=== PATIENT | female | born 1940 | race Caucasian/White ===

== ENCOUNTER 2021-11-02 10:33 | Day surgery (SDC) | payer BC, MEDICARE ==
[~2021-11-02 10:33] MED LIST: Propofol 200 MG/20 ML SDV ONE
[2021-11-02] MEDS ORDERED: Lactated Ringers 1,000 ML IV SCH (11:00)
[2021-11-02] MEDS ORDERED: Sodium Chloride 0.9% 10 ML Syringe FLUSH PRN (11:00)
[2021-11-02] MEDS ORDERED: Propofol 200 MG/20 ML SDV ONE (13:09)
== END 2021-11-02 14:25 | disposition home or self-care (01) ==
LOC: LL.SDS 10:33
PROVIDERS: ATTEND Surgery
DX: Z12.11 Encounter for screening for malignant neoplasm of colon (principal); K57.30 Diverticulosis of large intestine without perforation or abscess without bleeding; K64.4 Residual hemorrhoidal skin tags; N39.0 Urinary tract infection, site not specified; E78.00 Pure hypercholesterolemia, unspecified; E66.9 Obesity, unspecified; I10 Essential (primary) hypertension; R33.9 Retention of urine, unspecified; Z79.899 Other long term (current) drug therapy; Z88.8 Allergy status to other drugs, medicaments and biological substances
CPT/HCPCS: 00812; J2704; J7120